=== PATIENT | male | born 1950 | race Caucasian/White ===

== ENCOUNTER → 2017-06-01 | Outpatient (CLI) | payer MEDICARE ==
--- NOTE | 2017-06-01 09:54 | REP ---
Duplex carotid sonography: History: Carotid stenosis. Findings: Antegrade flow was observed in the left vertebral artery. Right vertebral artery flow could not be observed. Right carotid: The right common carotid artery shows moderate mixed plaquing. There is moderate mixed plaquing in the bulb and proximal ICA as well on two-dimensional scanning on the right side. Color flow and spectral Doppler interrogation show stenotic flow velocities in the external carotid artery, normal velocities in the internal. Velocity chart right carotid: Right CCA PSV 126 cm/s Right ICA PSV 84 MARYJANE 17 Right ECA PSV 202 Right ICA/CCA ratio 0.7 Impression: 50-79% category narrowing in the right ICA by Doppler velocity criteria, probably near the upper end of this range. Left carotid: The left common carotid artery shows moderate mixed plaquing. There is moderate to marked mixed plaquing in the proximal ICA on two-dimensional scan with morphologic evidence of severe luminal narrowing in the 90% range. High velocity flow jet could not be observed however. Thus the Doppler flow velocities are not felt to be reflective of degree of stenosis in this case. Velocity chart left carotid: Left CCA PSV 87 cm/s Left ICA PSV 180 EDV 21 Left ECA PSV 137 Left ICA/CCA ratio normal 1.2. Impression: 80-99% category narrowing left ICA based on visualized plaque morphology. High velocity flow jets could not be observed or recorded. Consider MR angiography. Signed by Milton Howell MD 06/01/2017 11:14 A
== END ==
LOC: M RAD 08:15
PROVIDERS: ATTEND Surgery Vascular Surgery
DX: I65.23 Occlusion and stenosis of bilateral carotid arteries (principal)

== ENCOUNTER → 2017-06-11 | Outpatient (CLI) | payer MEDICARE | LOC: M RAD 17:24 | PROVIDERS: ATTEND Surgery Vascular Surgery | DX: I65.23 Occlusion and stenosis of bilateral carotid arteries (principal); Z53.9 Procedure and treatment not carried out, unspecified reason ==

== ENCOUNTER → 2017-06-14 | Outpatient (CLI) | payer MEDICARE, BC ==
[~2017-06-14] MED LIST: ISOVUE-370 76% 100ML VIAL (Q9967) As Ordered ONE
--- NOTE | 2017-06-15 08:51 | REP ---
CT angiography of the carotid arteries with IV contrast: History: Occlusion and stenosis. CT contrast dose: 75 ml of intravenous Isovue 370. Technique: Helical scanning is acquired. 2 mm axial images are reformatted. Coronal and sagittal multiplanar reformation images and coronal and sagittal maximal intensity projection images are generated. 3-D surface rendered color vascular images are generated and viewed rotationally. Curved axis MPR images are generated through the internal carotid arteries bilaterally. CT findings: Thoracic aortic arch shows minimal atherosclerotic calcification. Great vessel origins are non-stenotic. There is mild calcification of the innominate artery at its bifurcation. There is a noncalcified plaque in the origin of the common carotid artery on the right. This produces a 50% diameter stenosis. The common carotid arteries are otherwise unremarkable. There is calcification in the right carotid bulb and in the proximal external and proximal internal carotid arteries. Less than 50% stenosis is seen in the right proximal internal carotid artery. There is a little more calcification at the bifurcation on the left with 60-70% stenosis at the origin of the ICA on the left. The distal internal carotid arteries are unremarkable and symmetric bilaterally. The right vertebral artery is occluded from its origin. There is a small reconstituted right distal vertebral artery in the upper neck which anastomoses with the left vertebral artery. The origin of the left vertebral artery from the subclavian artery is quite stenotic and redundant in coarse, approximately 80% narrowing is felt to be present. The basilar artery is somewhat small in caliber but patent. Impression: 1. 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 The origin of the left vertebral artery from the left subclavian artery is quite stenotic. The basilar artery is somewhat small in caliber but widely patent. 2. 50% diameter stenosis at the origin of the common carotid artery on the right. 3. 60-70% stenosis proximal ICA on the left. Bilateral carotid bulb and proximal ICA calcific plaquing. Signed by Milton Howell MD 06/15/2017 04:12 P
--- NOTE | 2017-06-15 08:54 | REP ---
CT angiography of the brain with IV contrast: History: Occlusion and stenosis. CT contrast dose: 75 ml of intravenous Isovue 370. CT technique: Helical scanning is acquired. 2 mm axial images are reformatted. Coronal, sagittal and axial maximal intensity projection images are generated and surface rendered color 3-D vascular images are generated and reviewed rotationally. Curved MPR images are generated through the internal carotid arteries bilaterally. CT angiographic findings: The distal vertebral arteries are asymmetric left dominant. Right is quite small. The basilar artery is rather small in caliber but widely patent. Posterior cerebral arteries are symmetric. Superior cerebellar vessels are less well defined but present bilaterally. The distal internal carotid arteries are unremarkable except for some vascular calcification in the right carotid siphon. Anterior and middle cerebral arteries are intact. There is no evidence of yousif aneurysm or arteriovenous malformation. Sagittal, sigmoid and straight sinuses are patent. Impression: Generally small posterior circulation arteries. Right distal vertebral artery is quite small. Mild vascular calcification right distal internal carotid artery. Otherwise negative. Signed by Milton Howell MD 06/15/2017 04:12 P
== END ==
LOC: M RAD 17:14
PROVIDERS: ATTEND Surgery Vascular Surgery
DX: I65.23 Occlusion and stenosis of bilateral carotid arteries (principal)
CPT/HCPCS: 70496; 70498; Q9967

== ENCOUNTER → 2018-01-18 | Outpatient (CLI) | payer MEDICARE, BC | LOC: M RAD 08:09 | DX: I65.23 Occlusion and stenosis of bilateral carotid arteries (principal) | CPT/HCPCS: 93880 ==

== ENCOUNTER → 2018-09-27 | Outpatient (CLI) | payer MEDICARE, BC ==
--- NOTE | 2018-09-27 10:14 | REP ---
Bilateral lower extremity arterial Doppler ultrasound: History: Atherosclerosis of the unga arteries. Intermittent claudication bilateral lower extremities. Findings: Ankle brachial indices are normal, 1.16 on the right and 1.14 on the left. There is moderate atherosclerotic plaquing bilaterally. Predominantly triphasic normal wave forms are observed. There is evidence of some degree of proximal profunda femoral artery stenosis on the left. Otherwise negative. Right lower extremity arterial Doppler velocity chart: CF A 144 cm/S Profunda 144 Proximal SFA 162 Mid SFA 141 Distal SFA 143 Popliteal 76 Proximal AT A 46 Tibioperoneal trunk 88 Proximal PROGRAM CONTROL ANALYST 58 Distal PROGRAM CONTROL ANALYST 61 Distal AT A 835 Left lower extremity arterial Doppler velocity chart: CF A 106 cm/S Profunda 242 Proximal SFA 131 Mid SFA 112 Distal SFA 128 Popliteal 104 Proximal AT A 35 Tibioperoneal trunk 49 Proximal PROGRAM CONTROL ANALYST 51 Distal PROGRAM CONTROL ANALYST 39 Distal AT A 50 Electronically Signed by Milton Howell MD 09/27/2018 10:05 A
--- NOTE | 2018-09-27 10:22 | REP ---
CAROTID ULTRASOUND: Real-time sonographic evaluation and duplex Doppler interrogation of the extracranial carotid vasculature is performed. There is moderate partially calcified plaque seen throughout both common carotid arteries and carotid bulbs extending into the internal and external carotid arteries. There is elevated peak systolic velocity in the proximal right internal carotid artery compatible with stenosis 60-79%. Peak systolic velocity in the proximal left internal carotid artery is mildly elevated but the ICA to CCA ratio is not elevated at 1.29. There is normal direction of flow in the left vertebral artery. The right vertebral artery is not visualized. Incidental note is made of a complex cyst in the right lobe of the thyroid 1.4 cm in maximum diameter and a subcentimeter left thyroid cyst. RIGHT LEFT Peak systolic velocity ICA 176 cm/s 137 cm/s End diastolic velocity ICA 25.5 cm/s 35.2 cm/s Peak systolic velocity CCA 84.5 cm/s 110 cm/s Peak systolic velocity ECA 340 cm/s 150 cm/s ICA/CCA ratio 2.3 1.29 IMPRESSION: Moderate partially calcified plaque and moderate narrowing bilateral carotid bulbs and internal carotid arteries. There are findings compatible with stenosis of the right internal carotid artery 60-79%. Mildly elevated peak systolic velocity proximal left internal carotid artery could indicate stenosis of the same degree, 60-79% although the ICA/CCA ratio is not elevated, which could be more compatible with narrowing less than 50%. Electronically Signed by Cruz Zavala MD 09/27/2018 03:32 P
== END ==
LOC: M RAD 08:07
PROVIDERS: ATTEND Surgery Vascular Surgery
DX: I65.23 Occlusion and stenosis of bilateral carotid arteries (principal); I70.213 Atherosclerosis of native arteries of extremities with intermittent claudication, bilateral legs; E04.1 Nontoxic single thyroid nodule

== ENCOUNTER → 2019-06-13 | Outpatient (CLI) | payer MEDICARE, BC ==
--- NOTE | 2019-06-13 16:50 | REP ---
CAROTID ULTRASOUND: Real-time ultrasound evaluation and duplex Doppler interrogation of extracranial carotid vascular performed and compared to prior study of 09/27/2018. Once again, there is moderate scattered plaquing and narrowing in the carotid bulbs extending into the internal and external carotid arteries. Peak systolic velocity is again mildly elevated in the internal carotid arteries bilateral as on prior study. However, ICA to CCA ratio is not significantly elevated. Again, the findings could indicate stenosis 50-79%, although the ICA to CCA ratio suggests narrowing less than 50%. Right vertebral artery is not visualized. Left vertebral artery demonstrates normal direction of flow. RIGHT LEFT Peak systolic velocity ICA 158 cm/s 176 cm/s End diastolic velocity ICA 27.4 51.3 Peak systolic velocity CCA 129 132 Peak systolic velocity ECA 387 140 ICA/CCA ratio 1.22 1.33 IMPRESSION: Moderate plaquing and narrowing again identified in the carotid bulbs and internal carotid arteries. There is again mild elevation of peak systolic velocity in the internal carotid arteries without elevated ICA to CCA ratios, with questionable stenosis of the ICA's greater than 50%. No change since prior study. Electronically Signed by Cruz Zavala MD 06/16/2019 04:14 P
--- NOTE | 2019-06-13 17:04 | REP ---
BILATERAL LOWER EXTREMITY DUPLEX DOPPLER ARTERIAL ULTRASOUND: Real-time ultrasound evaluation and duplex Doppler interrogation of bilateral lower extremity arterial systems is performed. Comparison made with prior study of 09/27/2018. Moderate scattered partially calcified plaquing is seen diffusely bilaterally. There is elevated peak systolic velocity in the common femoral arteries, profunda arteries, and superficial femoral arteries, more so than on the prior study, suggesting mild stenosis of these vessels. DONAVON right is 1.13 and left 1.21. Triphasic and biphasic waveforms are seen diffusely bilaterally. PEAK SYSTOLIC VELOCITY RIGHT LEFT Common femoral artery 174 cm/s 169 cm/s Profunda 254 362 Proximal SFA 269 162 Mid SFA 166 156 Distal SFA 142 161 Popliteal 88 92 Proximal ALFONSO 95 64 Tibial/peroneal trunk 93 90 Proximal INTERVENTIONAL PHYSICIAN 65 70 Distal INTERVENTIONAL PHYSICIAN 95 120 Distal ALFONSO 63 87 IMPRESSION: Moderate diffuse plaquing bilaterally in the arterial systems. There appears to be mild stenosis of the common femoral arteries bilaterally, proximal profunda arteries, and proximal superficial femoral arteries. Degree of narrowing appears mildly increased compared to the prior study. Electronically Signed by Cruz Zavala MD 06/16/2019 04:14 P
== END ==
LOC: M RAD 11:51
PROVIDERS: ATTEND Physician Assistant
DX: I70.213 Atherosclerosis of native arteries of extremities with intermittent claudication, bilateral legs (principal); F17.210 Nicotine dependence, cigarettes, uncomplicated; I65.23 Occlusion and stenosis of bilateral carotid arteries

== ENCOUNTER → 2020-03-16 | Outpatient (CLI) | payer MEDICARE, BC ==
--- NOTE | 2020-03-31 09:51 | REP ---
DUPLEX CAROTID SONOGRAPHY HISTORY: Atherosclerosis. Occlusion and stenosis of bilateral carotid arteries. FINDINGS: Antegrade flow is observed in the left vertebral artery. The right vertebral artery could not be seen. RIGHT CAROTID: The right common carotid artery shows mild soft plaquing. There is mixed plaquing in the bulb, proximal ICA, and proximal ECA on two-dimensional scanning on the right side. Stenotic flow velocity is observed on color Doppler interrogation of the external carotid artery. Normal waveforms and velocities are observed in the right ICA. VELOCITY CHART RIGHT CAROTID PSV EDV CCA 151 cm/s ICA 83 cm/s 18 cm/s ECA 290 cm/s ICA/CCA ratio 0.6 (normal) IMPRESSION: Less than 50% category narrowing in the right internal carotid artery (ICA) by Doppler velocity criteria. Stenotic flow velocities are observed in the external carotid artery. LEFT CAROTID: The left common carotid artery shows mild mixed plaquing. There is moderate mixed plaquing in the bulb, proximal ICA, and proximal ECA on the left side. Color flow and spectral Doppler interrogation are unremarkable on the left. VELOCITY CHART LEFT CAROTID PSV EDV CCA 93 cm/s ICA 124 cm/s 27 cm/s ECA 142 cm/s ICA/CCA ratio 1.3 (normal) IMPRESSION: Less than 50% category narrowing in the left internal carotid artery (ICA) by Doppler velocity criteria. MTDD
--- NOTE | 2020-03-31 09:52 | REP ---
BILATERAL LOWER EXTREMITY ARTERIAL DOPPLER ULTRASOUND HISTORY: Atherosclerosis bilaterally legs with intermittent claudication bilateral legs. FINDINGS: Ankle brachial indices are normal measured 1.1 in each lower extremity. Moderate plaquing is seen bilaterally. Predominantly biphasic arterial Doppler waveforms are noted in the lower extremities bilaterally. High velocity flow is observed in the proximal profunda artery on the left, question origin stenosis. Aortoiliac evaluation demonstrates bilateral patent common and external iliac arteries. Peak systolic flow velocity in the distal aorta is recorded at 60 cm/s. BILATERAL LOWER EXTREMITY VELOCITY CHART PSV RIGHT (cm/s) PSV LEFT (cm/s) QUANG 258 220 EIA 202 218 PINMAKER 165 122 Profunda 157 276 Proximal SFA 129 136 Mid SFA 122 133 Distal SFA 133 67 Popliteal 83 89 Proximal ALFONSO 74 73 Tibioperoneal trunk 48 59 Proximal RERECORDING MIXER 45 42 Distal RERECORDING MIXER 63 69 Distal ALFONSO 67 95 MTDD
== END ==
LOC: M RAD 07:37
PROVIDERS: ATTEND Physician Assistant
DX: I70.213 Atherosclerosis of native arteries of extremities with intermittent claudication, bilateral legs (principal); R09.89 Other specified symptoms and signs involving the circulatory and respiratory systems; M79.604 Pain in right leg; M79.605 Pain in left leg

== ENCOUNTER → 2020-10-04 | Outpatient (CLI) | payer MEDICARE, BC ==
--- NOTE | 2020-10-04 10:20 | REP ---
INDICATION: ESSENTIAL HTN,ATHEROSCLEROTIC DX,BYPASS GRAFT,MURM. COMPARISON: 03/16/2020. TECHNIQUE: Bilateral carotid artery duplex ultrasound. FINDINGS: Peak flow velocities: Right left Internal carotid artery 107.6 cm/sec 127.7 cm/sec Int. Carotid diastolic 19.0 cm/sec 026.9 cm/sec External carotid artery 239.3 cm/sec 178.5 cm/sec Common carotid artery 133.8 cm/sec 131.1 cm/sec ICA-CCA ratio 0.8 0.97 There is occasional atheromatous plaque in the distal CCAs and bulbs bilaterally. There is moderately heavy atheromatous plaque at the origins of the ICAs and ECA is bilaterally. The peak flow velocities in the right and left ICAs are normal. There is no significant stenosis in the right or left ICAs. The peak flow velocities are elevated in the right and left ECA's, compatible with 50-69% narrowing. There is antegrade flow in the vertebral arteries bilaterally. Thyroid nodules and cysts are incidentally noted. Thyroid ultrasound might be considered for further evaluation. IMPRESSION: There is no stenosis in the right ICA or left ICA. There is 50-69% stenosis in the right ECA and the left ECA. There is antegrade flow in the vertebral arteries bilaterally. Thyroid nodules and cysts are incidentally noted, consider thyroid ultrasound follow-up. <Electronically signed by Cruz Julian > 10/04/20 [id number]
== END ==
LOC: M RAD 09:24
PROVIDERS: ATTEND Internal Medicine
DX: I65.23 Occlusion and stenosis of bilateral carotid arteries (principal); E04.1 Nontoxic single thyroid nodule; I10 Essential (primary) hypertension; I25.10 Atherosclerotic heart disease of native coronary artery without angina pectoris; Z95.1 Presence of aortocoronary bypass graft; R01.1 Cardiac murmur, unspecified; E78.49 Other hyperlipidemia

== ENCOUNTER → 2020-11-16 | Outpatient (CLI) | payer MEDICARE, BC ==
--- NOTE | 2020-11-16 12:03 | REP ---
INDICATION: CLAUDICATION COMPARISON: 03/16/2020. TECHNIQUE: Real time zavala scale and Duplex Doppler evaluation of the bilateral lower extremity arterial vasculature using linear high frequency transducer. FINDINGS: Zavala scale and duplex doppler images demonstrate patent iliac stents. DONAVON bilaterally is 1.0. There are diffuse biphasic and triphasic waveforms throughout the lower extremity arterial systems bilaterally. Moderate scattered plaquing is seen with no arterial occlusion. There does appear to be stenosis of the left profunda. Peak systolic velocities (cm/sec) Common iliac artery: Right 249; left 200 External iliac artery: Right 192; left 194 Common femoral artery: Right 132; Left 151 Profunda femoris: Right 91; Left 362 SFA (proximal): Right 188; Left 151 SFA (mid): Right 114; Left 145 SFA (distal): Right 136; Left 155 Popliteal artery: Right 82; Left 64 ALFONSO (prox.): Right 72; Left 79 Tibioperoneal trunk: Right 62; Left 45 LAUNDROMAT MANAGER (prox.): Right 70; Left 57 LAUNDROMAT MANAGER (distal): Right 81; Left 82 ALFONSO (distal): Right 76; Left 114 IMPRESSION: Patent bilateral iliac stents. No arterial occlusion. Stenosis left profunda artery. <Electronically signed by Cruz aZvala > 11/16/20 1200
== END ==
LOC: M RAD 09:55
PROVIDERS: ATTEND Physician Assistant
DX: I70.213 Atherosclerosis of native arteries of extremities with intermittent claudication, bilateral legs (principal)

== ENCOUNTER → 2025-04-15 | Outpatient (CLI) | payer MEDICARE, BC ==
[~2025-04-15] MED LIST changes: +ATOR40TA75; +ECOT81TA5 PO; +HYDR-3490; -ISOVUE-370 76% 100ML VIAL (Q9967) As Ordered ONE; +LOSA100T46
== END ==
LOC: M ONCR 10:46
PROVIDERS: ATTEND General Practice
DX: M89.9 Disorder of bone, unspecified (principal); C67.9 Malignant neoplasm of bladder, unspecified; Z90.79 Acquired absence of other genital organ(s); Z80.52 Family history of malignant neoplasm of bladder; Z80.7 Family history of other malignant neoplasms of lymphoid, hematopoietic and related tissues; Z91.030 Bee allergy status; Z79.82 Long term (current) use of aspirin; Z79.899 Other long term (current) drug therapy

== ENCOUNTER → 2025-04-18 | Outpatient (CLI) | payer MEDICARE, BC ==
[~2025-04-18] VITALS: Ht 177.8 cm; Wt 65.0 kg
[2025-04-18 08:45] VITALS: TEMP 97.5
[2025-04-18] MEDS: NS (Normal Saline) 0.9% 1,000 ML IV SCH (09:12)
[2025-04-18] MEDS: ceFAZolin SODIUM 2 GM in DEXTROSE 5% (D5W) ADV/MINI-BAG 50 ML IV ONE (09:13)
[2025-04-18] MEDS: MIDAZOLAM INJ 2 MG/2 ML VIAL IV PRN (09:18)
[2025-04-18] MEDS: LIDOCAINE 1% MDV 20 ML VIAL SC SCH (09:30)
[2025-04-18 10:00] VITALS: BP 177/80; O2SAT 100
== END ==
LOC: M IRPRO 08:32
PROVIDERS: ATTEND Specialist
DX: C67.9 Malignant neoplasm of bladder, unspecified (principal)
CPT/HCPCS: 36561; 99152; J0688; J1642; J2250; J3010

== ENCOUNTER → 2025-05-01 | Outpatient (CLI) | payer MEDICARE, BC ==
[~2025-05-01] MED LIST changes: +LIDOCAINE 1% MDV 20 ML VIAL SC SCH
[2025-05-01 12:45] VITALS: TEMP 98.3
[2025-05-01] MEDS: NS (Normal Saline) 0.9% 1,000 ML IV SCH (13:53)
[2025-05-01] MEDS: MIDAZOLAM INJ 2 MG/2 ML VIAL IV PRN (13:53)
[2025-05-01] MEDS: SODIUM CHLORIDE 0.9% 1000 ML XX SCH (13:54)
[2025-05-01 15:00] VITALS: BP 154/76; O2SAT 100
== END ==
LOC: M IRPRO 12:20
PROVIDERS: ATTEND General Practice
DX: C79.51 Secondary malignant neoplasm of bone (principal); C67.9 Malignant neoplasm of bladder, unspecified
CPT/HCPCS: 20220; 20982; 77012; 88305; 99152; 99153; C1886; J2250; J3010

== ENCOUNTER → 2025-05-01 | Outpatient (RCR) | payer MEDICARE, BC ==
[~2025-05-01] MED LIST changes: -LIDOCAINE 1% MDV 20 ML VIAL SC SCH
== END ==
LOC: M ONCR 04-21 08:01
PROVIDERS: ATTEND General Practice
DX: Z51.0 Encounter for antineoplastic radiation therapy (principal); C79.51 Secondary malignant neoplasm of bone

== ENCOUNTER → 2025-05-18 | Outpatient (POV) | payer MEDICARE, BC ==
[2025-05-18 10:30] VITALS: BP 152/71; O2SAT 100
== END ==
LOC: M IRPOV 10:12
PROVIDERS: ATTEND Registered Nurse School
DX: Z48.812 Encounter for surgical aftercare following surgery on the circulatory system (principal); C67.9 Malignant neoplasm of bladder, unspecified; Z91.030 Bee allergy status